=== PATIENT | female | born 1975 | race Two or more races ===

== ENCOUNTER 2020-02-09 09:30 | Day surgery (SDC) | payer OTHER | END 2020-02-09 16:06 | disposition home or self-care (01) | LOC: CIR.AMB 09:30 | PROVIDERS: ATTEND Surgery | DX: D24.2 Benign neoplasm of left breast (principal); Z20.828 Contact with and (suspected) exposure to other viral communicable diseases ==

== ENCOUNTER 2022-12-14 09:56 | Emergency (ER) | payer OTHER ==
[~2022-12-14] VITALS: Ht 157.5 cm; Wt 83.9 kg
[2022-12-14] MEDS ORDERED: CARVEDILOL ER40 MG (10:23)
== END 2022-12-14 12:36 | disposition home or self-care (01) ==
LOC: ER 09:56
DX: M54.50 Low back pain, unspecified (principal); I10 Essential (primary) hypertension; Z88.6 Allergy status to analgesic agent; Z91.048 Other nonmedicinal substance allergy status

== ENCOUNTER 2023-01-15 18:32 | Emergency (ER) | payer OTHER ==
[~2023-01-15] VITALS: Ht 157.5 cm; Wt 85.3 kg
[~2023-01-15 18:32] MED LIST: CARVEDILOL ER40 MG
[2023-01-15] MEDS ORDERED: TOPROL XL25 M1 PO (19:13)
[2023-01-16] MEDS ORDERED: LEVSIN/SL0.125 MG SL (00:03)
[2023-01-16] MEDS ORDERED: PEPCID AC20 MG PO (00:03)
== END 2023-01-16 00:50 | disposition home or self-care (01) ==
LOC: ER 18:32
DX: K80.20 Calculus of gallbladder without cholecystitis without obstruction (principal); R16.0 Hepatomegaly, not elsewhere classified; I10 Essential (primary) hypertension; Z88.6 Allergy status to analgesic agent; Z91.040 Latex allergy status